=== PATIENT | female | born 1990 | race Caucasian/White ===

== ENCOUNTER 2016-08-02 13:32 | Emergency (ER) | payer MEDICAID ==
[~2016-08-02] VITALS: Ht 165.1 cm; Wt 77.1 kg
[~2016-08-02 13:32] MED LIST: PRENATAL VITAMI1 T10 PO
[2016-08-02 13:35] VITALS: BP 116/69
[2016-08-02] MEDS ORDERED: NACL 0.9% 1,000 ML IV SCH (14:52)
[2016-08-02] MEDS ORDERED: FAMOTIDINE 20 MG/2 ML VIAL IVP ONE (14:55)
[2016-08-02] MEDS ORDERED: ONDANSETRON 4 MG/2 ML VIAL IVP ONE (14:55)
--- NOTE | 2016-08-02 15:00 | NUR ---
25F BIB SELF C/O LOWER ABDOMINAL PAIN X 3 DAYS. DENIES N/V/D; SKIN IS PINK/WARM/DRY; AAOX4 WITH EVEN AND STEADY GAIT; LUNGS CLEAR BL; HR EVEN AND REGULAR; PT DENIES ANY FEVER, CP, SOB, OR COUGH AT THIS TIME; PATIENT STATES PAIN OF 7/10 AT THIS TIME; VSS; PATIENT POSITIONED FOR COMFORT; HOB ELEVATED; BEDRAILS UP X2; BED DOWN. ER MD MADE AWARE OF PT STATUS.
--- NOTE | 2016-08-02 16:10 | NUR ---
2ND N/S GIVEN 1000ML AT WIDE OPEN 999ML PER HOUR Addendum: 08/02/16 at 1621 by JENNIE ORDERED BY DR COX
[2016-08-02] MEDS ORDERED: MORPHINE SULFATE 4 MG/ML SYR IVP ONE (16:30)
[2016-08-02] MEDS ORDERED: NACL 0.9% 1,000 ML IV ONE (17:05)
[2016-08-02 17:33] VITALS: BP 104/66
--- NOTE | 2016-08-02 17:33 | NUR ---
Patient discharged with v/s stable. Written and verbal after care instructions given and explained. Patient alert, oriented and verbalized understanding of instructions. Ambulatory with steady gait. All questions addressed prior to discharge. ID band removed. Patient advised to follow up with PMD. Rx of RANITIDINE, TYLENOL given. Patient educated on indication of medication including possible reaction and side effects. Opportunity to ask questions provided and answered.
== END 2016-08-02 17:33 | disposition home or self-care (01) ==
LOC: MED 13:32
DX: K21.9 Gastro-esophageal reflux disease without esophagitis (principal)
CPT/HCPCS: 36415; 80053; 81001; 81025; 82150; 83690; 85025; 96361; 96374; 96375; 99284; J2270; J2405; J3490; J7030

== ENCOUNTER 2018-02-07 14:14 | Emergency (ER) | payer MEDICAID ==
[~2018-02-07] VITALS: Ht 165.1 cm; Wt 78.9 kg
[~2018-02-07 14:14] MED LIST changes: +PREN-385 PO; -PRENATAL VITAMI1 T10 PO
--- NOTE | 2018-02-07 14:18 | NUR ---
patient ambulated to er bed 7
[2018-02-07 14:20] VITALS: BP 109/66
--- NOTE | 2018-02-07 14:30 | NUR ---
27YO F TO ER W/C/O LT. BREAST PAIN/SWOLLEN. BREAST FEEDING X3 WKS. FED BABY TODAY. PER PATIENT, HAD FEVER LAST NIGHT AND TOOK TYLENOL 650 MG. PO. LS CLEAR THROUGHOUT. ABD SOFT. L BREAST TENDERNESS. TACHYCARDIA AT 111 NOTED. WILL CONTINUR TO MONITOR. ER MADE AWARE. HX: TUBAL LIGATION
[2018-02-07] MEDS ORDERED: ACETAMINOPHEN EXTRA STRENGTH 500 MG TAB PO ONE (14:35)
--- NOTE | 2018-02-07 14:52 | NUR ---
DR PAGAN AT BEDSIDE FOR PATIENT EVALUATION
--- NOTE | 2018-02-07 14:57 | NUR ---
Female Quoter accompanied female patient for breast Exam.
--- NOTE | 2018-02-07 15:23 | NUR ---
Patient discharged with v/s stable. Written and verbal after care instructions given and explained. Patient alert, oriented and verbalized understanding of instructions. Ambulatory with steady gait. All questions addressed prior to discharge. ID band removed. Patient advised to follow up with PMD. Rx of MOTRIN AND CLINDAMYCIN given. Patient educated on indication of medication including possible reaction and side effects. Opportunity to ask questions provided and answered.
[2018-02-07 15:25] VITALS: BP 109/66
== END 2018-02-07 15:23 | disposition home or self-care (01) ==
LOC: MED 14:14
DX: N61.0 Mastitis without abscess (principal); Z98.51 Tubal ligation status
CPT/HCPCS: 99283

== ENCOUNTER 2019-12-09 11:43 | Emergency (ER) | payer MEDICAID ==
[~2019-12-09] VITALS: Ht 167.6 cm; Wt 65.8 kg
[2019-12-09 11:56] VITALS: BP 130/78
--- NOTE | 2019-12-09 11:56 | NUR ---
29 Y/O F C/C CHEST PAIN WITH PALPITATIONS X 3 DAYS. PER PT PAIN LOCATED IN STERNUM AREA RADIATING TO RIGHT UPPER CHEST, 7/10 PAIN, PRESSURE SENSATION, LAYING DOWN EXARCERBATES THE PAIN, NOTHING ALLEVIATES. DENIES DYSURIA. PER PT NKA. HX KIDNEY STONES. NO SX. NO RX. NO NVD. SIDE RAIL X1. PT EUPNIC, VSS.
[2019-12-09] MEDS ORDERED: IBUPROFEN 600 MG TAB PO ONE (12:15)
[2019-12-09 12:40] LABS: BASOPHILS % (AUTO) 0.4 % (0.0-2.0); EOSINOPHILS # (AUTO) 0.1 K/uL (0-0.4); EOSINOPHILS % (AUTO) 1.6 % (0.0-4.0); HEMATOCRIT 39.9 % (36-48); HEMOGLOBIN 13.4 g/dL (12.0-16.0); LYMPHOCYTES # (AUTO) 1.7 K/uL (2.5-16.5); LYMPHOCYTES % (AUTO) 30.2 % (20.5-51.1); MEAN CORPUSCULAR HEMOGLOBIN 28 pg (27-31); MEAN CORPUSCULAR HGB CONC 34 g/dL (33-37); MEAN CORPUSCULAR VOLUME 84.8 fL (80-94); MONOCYTES # (AUTO) 0.5 K/uL (0.8-1.0); MONOCYTES % (AUTO) 9.1 % (1.7-9.3); NEUTROPHILS # (AUTO) 3.3 K/uL (1.8-7.7); NEUTROPHILS % (AUTO) 58.7 % (42.2-75.2); PLATELET COUNT (AUTO) 205 K/uL (140-450); RED BLOOD CELL COUNT(AUTO) 4.71 MIL/uL (4.20-5.40); WHITE BLOOD COUNT (AUTO) 5.7 K/uL (4.8-10.8)
[2019-12-09 13:11] LABS: ALBUMIN 3.8 g/dL (3.4-5.0); ANION GAP 10.9 (8-16); CREATININE 0.8 mg/dL (0.6-1.3); FREE T4 (FREE THYROXINE) 0.94 ng/dL (0.76-1.46); POTASSIUM 3.9 mmol/L (3.5-5.1); THYROID STIMULATING HORMONE 0.68 uIU/mL (0.34-3.74); TOTAL BILIRUBIN 0.3 mg/dL (0.0-1.0)
[2019-12-09 14:07] VITALS: BP 106/72
--- NOTE | 2019-12-09 14:07 | NUR ---
Patient discharged with v/s stable. Written and verbal after care instructions given and explained. Patient verbalized understanding. Ambulatory with steady gait. All questions addressed prior to discharge. Advised to follow up with PMD.
== END 2019-12-09 14:07 | disposition home or self-care (01) ==
LOC: MED 11:43
DX: R07.9 Chest pain, unspecified (principal); N20.0 Calculus of kidney; Z79.899 Other long term (current) drug therapy
CPT/HCPCS: 36415; 71045; 80053; 84439; 84443; 84484; 85025; 93005; 99285; Q0092

== ENCOUNTER 2020-04-01 03:23 | Inpatient (IN) | payer MEDICAID, SELFPAY ==
[~2020-04-01] VITALS: Ht 162.6 cm; Wt 80.3 kg
[2020-04-01 03:38] VITALS: BP 130/96
--- NOTE | 2020-04-01 03:40 | NUR ---
PT AMBUALTED TO BED 11 WITH STEADY GAIT. PT UA PROVIDED.
--- NOTE | 2020-04-01 03:40 | NUR ---
SEE COMPLETE ASSESSMENT FOR FURTHER DETAILS.
--- NOTE | 2020-04-01 04:12 | NUR ---
ERMD AT BEDSIDE.
[2020-04-01] MEDS ORDERED: MORPHINE SULFATE 2 MG/ML SYR IVP ONE ×2 (04:15→05:40)
[2020-04-01] MEDS ORDERED: NACL 0.9% 1,000 ML IV ONE ×3 (04:15→05:40)
[2020-04-01] MEDS ORDERED: ONDANSETRON 4 MG/2 ML VIAL IVP ONE (04:15)
--- NOTE | 2020-04-01 04:30 | NUR ---
IV placed in R AC 20g. Labs drawn.
--- NOTE | 2020-04-01 04:48 | NUR ---
BLOOD LABS WALKED TO LAB.
[2020-04-01 05:00] LABS: BASOPHILS % (AUTO) 0.3 % (0.0-2.0); EOSINOPHILS # (AUTO) 0.1 K/uL (0-0.4); EOSINOPHILS % (AUTO) 0.6 % (0.0-4.0); HEMATOCRIT 40.8 % (36-48); HEMOGLOBIN 13.8 g/dL (12.0-16.0); LYMPHOCYTES # (AUTO) 1.7 K/uL (2.5-16.5); LYMPHOCYTES % (AUTO) 13.3 % (20.5-51.1); MEAN CORPUSCULAR HEMOGLOBIN 28 pg (27-31); MEAN CORPUSCULAR HGB CONC 34 g/dL (33-37); MEAN CORPUSCULAR VOLUME 84.2 fL (80-94); MONOCYTES # (AUTO) 0.9 K/uL (0.8-1.0); MONOCYTES % (AUTO) 7.5 % (1.7-9.3); NEUTROPHILS # (AUTO) 9.9 K/uL (1.8-7.7); NEUTROPHILS % (AUTO) 78.3 % (42.2-75.2); PLATELET COUNT (AUTO) 203 K/uL (140-450); RED BLOOD CELL COUNT(AUTO) 4.84 MIL/uL (4.20-5.40); RED CELL DISTRIBUTION WIDTH 14.2 % (11.6-13.7); WHITE BLOOD COUNT (AUTO) 12.6 K/uL (4.8-10.8)
[2020-04-01 05:03] LABS: APPEARANCE,URINE CLEAR (CLEAR); BILIRUBIN,URINE NEGATIVE (NEGATIVE); BLOOD, URINE TRACE-I (NEGATIVE); COLOR,URINE YELLOW (YELLOW); LEUKOCYTE ESTERASE ,URINE NEGATIVE (NEGATIVE); NITRITE, URINE NEGATIVE (NEGATIVE); UGLUCOSE NEGATIVE (NEGATIVE)
[2020-04-01 05:11] LABS: ALBUMIN 3.8 g/dL (3.4-5.0); ANION GAP 12.9 (8-16); CARBON DIOXIDE 26.9 mmol/L (21-32); CREATININE 0.7 mg/dL (0.6-1.3); POTASSIUM 3.8 mmol/L (3.5-5.1); TOTAL BILIRUBIN 0.4 mg/dL (0.0-1.0)
--- NOTE | 2020-04-01 05:15 | NUR ---
PT RETURNED FRON CT VIA W/C.
[2020-04-01 05:27] LABS: WBC,URINE 0-5 /HPF (0-5)
[2020-04-01 05:29] LABS: HYALINE CASTS, URINE 0-2 /LPF (None Seen)
[2020-04-01] MEDS ORDERED: PIPERACILLIN/TAZOBACTAM 3.375 GM in DEXTROSE 5% 50 ML IV ONE (05:40)
--- NOTE | 2020-04-01 06:00 | NUR ---
ANTIGEN COVID SWAB COLLECTED AND SENT TO LAB.
[2020-04-01] MEDS ORDERED: PIPERACILLIN/TAZOBACTAM 3.375 GM VIAL IV ONE (06:19)
--- NOTE | 2020-04-01 07:14 | NUR ---
RECEIVED REPORT FROM MARIA A ALCOCER FOR TRANSFER OF CARE
--- NOTE | 2020-04-01 07:14 | NUR ---
GAVE REPORT TO JESUS ALCOCER AND RAMOS ALCOCER. TRANSFER OF CARE.
--- NOTE | 2020-04-01 08:12 | NUR ---
CALLED REPORT TO SUDHIR ALCOCER, FOR TRANSFER TO MED SURGE
--- NOTE | 2020-04-01 08:18 | NUR ---
Patient will be admitted to care of DR. THOMPSON. Admited to MED SURGE. Will go to room 106 A. Belongings list completed. Report given to SUDHIR ALCOCER.
[2020-04-01 08:20] VITALS: BP 104/58
--- NOTE | 2020-04-01 08:20 | NUR ---
RECEIVED REPORT FOR PATIENT FROM ED RN, ROSALINDA. PATIENT ARRIVED IN WHEELCHAIR, AMBULATED WITH STEADY GAIT TO BED. PATIENT AWAKE, ALERT ORIENTED X4. PATIENT SPEAKS ENOUGH TURKISH TO COMPLETE ADMISSION PROCESS WITHOUT AN HUMAN RESOURCES OFFICER. PATIENT C/O PAIN TO RIGHT UPPER QUADRANT BUT TOLERABLE AT THIS TIME. RESP EVEN AND UNLABORED ON ROOM AIR. RAC 20G INFUSING NS WELL. LUNGS CLEAR. BOWEL SOUNDS PRESENT, LBM REPORTED 11/7. SKIN IS WARM TO TOUCH AND INTACT. MRSA COLLECTED AND SENT TO LAB. PATIENT REFUSED FLU VACC AT THIS TIME. PLAN OF CARE DISCUSSED WITH PATIENT. PATIENT VERBALIZED UNDERSTANDING. CALL LIGHT WITHIN REACH. WILL CONTINUE TO MONITOR.
--- NOTE | 2020-04-01 10:35 | NUR ---
PATIENT LEFT TO OR IN STABLE CONDITION.
[2020-04-01] MEDS ORDERED: SUCCINYLCHOLINE CHLORIDE 200 MG/10 ML VIAL IVP ONE ×2 (11:05→12:00)
[2020-04-01] MEDS ORDERED: BUPIVACAINE-MPF/EPI 0.25% 10 ML VIAL INJ ONE (11:16)
[2020-04-01] MEDS ORDERED: BUPIVACAINE-MPF/EPI 0.25% 30 ML VIAL INJ ONE (11:18)
[2020-04-01] MEDS ORDERED: NACL 0.9% 1,000 ML IV SCH (11:30)
[2020-04-01] MEDS ORDERED: diphenhydrAMINE 50 MG/ML VIAL IVP PRN (11:30)
[2020-04-01] MEDS ORDERED: ONDANSETRON 4 MG/2 ML VIAL IVP PRN (11:30)
[2020-04-01] MEDS ORDERED: MEPERIDINE 25 MG/ML SYR IVP PRN (11:30)
[2020-04-01] MEDS ORDERED: PROPOFOL 200 MG/20 ML VIAL IV ONE (12:00)
[2020-04-01] MEDS ORDERED: SEVOFLURANE 250 ML BTL INH ONE (12:00)
[2020-04-01] MEDS ORDERED: METOCLOPRAMIDE 10 MG/2 ML INJ VIAL ONE (12:00)
[2020-04-01] MEDS ORDERED: ROCURONIUM 50 MG/5 ML VIAL IV ONE (12:00)
[2020-04-01] MEDS ORDERED: MIDAZOLAM 2 MG/2 ML VIAL ONE (12:00)
[2020-04-01] MEDS ORDERED: DEXAMETHASONE 4 MG/ML VIAL ONE (12:00)
[2020-04-01] MEDS ORDERED: NEOSTIGMINE 1:1000 10 MG/10 ML VIAL ONE (12:00)
[2020-04-01] MEDS ORDERED: GLYCOPYRROLATE 0.2 MG/ML VIAL ONE (12:00)
[2020-04-01] MEDS ORDERED: fentaNYL citrate 0.05 MG/ML VIAL ONE (12:00)
[2020-04-01] MEDS ORDERED: ONDANSETRON 4 MG/2 ML VIAL ONE (12:00)
[2020-04-01] MEDS ORDERED: HYDROmorphone PFS 2 MG/ML SYR ONE (12:27)
[2020-04-01] MEDS: HYDROmorphone 1 MG/ML AMP IVP PRN ×5 (12:31→15:20)
[2020-04-01] MEDS ORDERED: PIPERACILLIN/TAZOBACTAM 3.375 GM in DEXTROSE 5% 50 ML IV SCH (13:00)
--- NOTE | 2020-04-01 13:30 | NUR ---
PATIENT CAME BACK FROM OR FOR LAPAROSCOPIC APPENDECTOMY. AWAKE BUT DROWSY. ABLE TO MAKE NEEDS KNOWN. RESP EVEN AND UNLABORED ON ROOM AIR, O2SAT 93%. 3 INCISIONS NOTED TO ABD, WITH DERMABOND. VITALS WNL 97.5 66 16 107/69. SAFETY MEASURES IN PLACE. CALL LIGHT WITHIN REACH. WILL CONTINUE TO MONITOR.
[2020-04-01] MEDS: metroNIDAZOLE 500 MG/NS PREMIX 100 ML IV SCH ×2 (14:04→20:26)
--- NOTE | 2020-04-01 15:45 | NUR ---
VITALS REMAIN WNL. DILAUDID WAS GIVEN FOR PAIN TO ABD S/P LAP APPY ON SCALE 9/10. EFFECTIVE IN REDUCING PAIN . PATIENT IS IN BED RESTING, STILL UNABLE TO EAT AT THIS TIME. ENCOURAGED PATIENT TO MAKE ATTEMPT AND ALSO MAKE ATTEMPT TO MOVE IN BED, TOLERATED. I/S GIVEN. INSTRUCTIONS PROVIDED. PATIENT VERBALIZED UNDERSTANDING. SAFETY MEASURES IN PLACE. WILL CONTINUE TO MONITOR.
[2020-04-01] MEDS ORDERED: MORPHINE SULFATE 2 MG/ML SYR IVP PRN (16:50)
[2020-04-01] MEDS: DEXT 5% /NACL 0.9% 1,000 ML IV SCH (17:06)
[2020-04-01] MEDS: CYCLOBENZAPRINE 10 MG TAB PO SCH (17:06)
--- NOTE | 2020-04-01 17:42 | NUR ---
ROUTINE MEDICATION GIVEN. PATIENT GOT ON BEDSIDE COMMODE WITHOUT ANY DIFFICULTY AND ASSIST. FACIAL GRIMACE NOTED. WILL MEDICATE APPROPRIATELY. SURGICAL INCISIONS REMAIN CLOSED AND INTACT WITH DERMABOND. NO BLEEDING NOTED. CALL LIGHT WITHIN REACH. WILL CONTINUE TO MONITOR.
--- NOTE | 2020-04-01 19:00 | NUR ---
RECEIVED BEDSIDE REPORT FROM DAY SHIFT NURSE. PATIENT IS AWAKE, ALERT, AND COOPERATIVE. RESPIRATION EVEN UNLABORED ON ROOM AIR. NO DISTRESS NOTED. SKIN IS WARM AND DRY. IV PATENT AND INTACT. PLAN OF CARE WAS DISCUSSED. ALL SAFETY MEASURES IN PLACE. BED IS AT LOW POSITION. CALL LIGHT WITHIN REACH. WILL CONTINUE TO MONITOR.
--- NOTE | 2020-04-01 19:20 | NUR ---
MORPHINE GIVEN PER REQUEST FOR PAIN TO ABDOMEN RADIATING TO LEFT ABDOMEN. WILL ENDORSE TO NIGHT NURSE FOR REASSESSMENT. PATIENT IN STABLE CONDITION.
--- NOTE | 2020-04-01 23:07 | NUR ---
CHECKED PATIENT. PATIENT SLEEPING RESPIRATION EVEN UNLABORED ON ROOM AIR. NO DISTRESS NOTED. WILL CONTINUE TO MONITOR.
[2020-04-02] MEDS: HYDROcodone/APAP 5/325 MG 1 TAB TAB PO PRN ×2 (01:04→08:16)
--- NOTE | 2020-04-02 01:05 | NUR ---
WITH ABDOMINAL PAIN OF 5/10, MEDICATED WITH NORCO BY WAYNE LERMA.
--- NOTE | 2020-04-02 02:02 | NUR ---
MADE ROUNDS. PATIENT IS SLEEPING RESPIRATION EVEN UNLABORED ON ROOM AIR. NO DISTRESS NOTED.
--- NOTE | 2020-04-02 03:55 | NUR ---
CHECKED PATIENT. PATIENT SLEEPING RESPIRATION EVEN UNLABORED ON ROOM AIR. NO DISTRESS NOTED
[2020-04-02] MEDS: metroNIDAZOLE 500 MG/NS PREMIX 100 ML IV SCH ×2 (04:59→12:57)
[2020-04-02 05:30] LABS: HEMATOCRIT 35.4 % (36-48); HEMOGLOBIN 12.1 g/dL (12.0-16.0); LYMPHOCYTES # (AUTO) 1.3 K/uL (2.5-16.5); LYMPHOCYTES % (AUTO) 11.1 % (20.5-51.1); MEAN CORPUSCULAR HEMOGLOBIN 29 pg (27-31); MEAN CORPUSCULAR HGB CONC 34 g/dL (33-37); MEAN CORPUSCULAR VOLUME 84.9 fL (80-94); MONOCYTES % (AUTO) 9.2 % (1.7-9.3); NEUTROPHILS % (AUTO) 79.7 % (42.2-75.2); PLATELET COUNT (AUTO) 201 K/uL (140-450); RED BLOOD CELL COUNT(AUTO) 4.17 MIL/uL (4.20-5.40); RED CELL DISTRIBUTION WIDTH 14.2 % (11.6-13.7); WHITE BLOOD COUNT (AUTO) 11.3 K/uL (4.8-10.8)
[2020-04-02 06:07] LABS: ANION GAP 12.1 (8-16); CREATININE 0.6 mg/dL (0.6-1.3); POTASSIUM 4.1 mmol/L (3.5-5.1)
--- NOTE | 2020-04-02 07:00 | NUR ---
TOLERATING CLEAR LIQUID DIET, VOIDING WELL. ENCOURAGED TO AMBULATE MORE. CONDITION REMAIN STABLE. WILL ENDORSE TO AM SHIFT NURSE FOR CONTINUITY OF CARE.
--- NOTE | 2020-04-02 07:40 | NUR ---
REC'D REPORT FROM NIGHT NURSE, PT. RESTING, IS AT BEDSIDE, CALL LIGHT WITHIN REACH, BED LOWEST POSITION.
[2020-04-02] MEDS ORDERED: CRUSHER, PILL MC ONE (08:06)
[2020-04-02] MEDS: CYCLOBENZAPRINE 10 MG TAB PO SCH ×2 (08:16→12:57)
--- NOTE | 2020-04-02 08:20 | NUR ---
PT MEDICATIONS ADMINISTERED: FLEXERIL 5MG ,AND NORCO/APAP 5/325. PT STATES L. SIDE ABDOMEN HURTS 12/01. S1S2 NOTED, LUNGS CLEAR BUT DIMINISHED. IS EDUCATION REINFORCED. RADIAL/PEDAL PULSES +2, NO EDEMA NOTED. ABD SOFT, TENDER WITH 3 LAP INCISIONS NOTED WITH DERMABOND, NO REDNESS, ECCHYMOSIS,DRAINAGE AND WELL APPROXIMATED. IV LINE INTACT, DRY, NO SIGNS OF INFILTRATION RUNNING D5/NS.09% AT 60ML/HR. CALL LIGHT WITHIN REACH, BED LOWEST POSITION
--- NOTE | 2020-04-02 09:10 | NUR ---
PATIENT HAS BEEN SCREENED AND CATEGORIZED LOW NUTRITION RISK. PATIENT WILL BE SEEN WITHIN 7 DAYS OF ADMISSION. 04/07/[address]
[2020-04-02] MEDS: DEXT 5% /NACL 0.9% 1,000 ML IV SCH (09:40)
--- NOTE | 2020-04-02 10:20 | NUR ---
PT RESTING, STATES VERY SLEEPY D/T NORCO, DENIES PAIN AT THIS TIME. ROCEPHIN ADMINISTERED MD ORDERED, IV SITE DRY, INTACT, CLEAR DRESSING, PATENT. CALL LIGHT WITHIN REACH,
[2020-04-02] MEDS ORDERED: ACET-9525 PO (12:26)
--- NOTE | 2020-04-02 13:05 | NUR ---
ADMINISTERED MED MD ORDERS, FLEXERIL 5 MG, FLAGYL IVPB. PT INFORMED OF DISCHARGE PLANS ,ADVISED TO CONTINUE USE OF IS. PT DENIES PAIN AT THIS TIME. IV SITE DRY, CLEAN, INTACT, PATENT, NO S/S INFILTRATION/EDEMA.
[2020-04-02 13:12] VITALS: BP 100/57
--- NOTE | 2020-04-02 13:37 | NUR ---
SOCIAL WORK NOTE: Patient's Orientation Person Situation Place Time Information Provided By PATIENT Comments SW MET WITH PATIENT AT BEDSIDE TO COMPLETE ASSESSMENT AND VERIFY DEMOGRAPHICS. 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 PATIENT HAS PMHX OF KIDNEY STONES AND CHOLECYSTECTOMY. PATIENT REPORTED NO HISTORY OF SUBSTANCE ABUSE OR MENTAL HEALTH. Admitted From Home Pre-Admission Level Of Functioning Status Independent/Ambulatory Prior Resources/Services Used In Last 12 Months No Prior Resources Used Prior DME No Prior DME Used Dialysis Comments N/A Living Situation Apartment Lives With Family Patient Had Caregiver No Home Support No Caregiver Issues Financial Issues No Known Financial Issue Referral To The Financial Counselor Needed No Factors/Needs No D/C Needs Identified Pt/Rep Participated In Discharge Plan Yes Patient/Family Agress With Discharge Plan Yes Discharge Plan Comments TENTATIVE DISCHARGE PLAN IS FOR PATIENT TO RETURN HOME. DC Plan Status Initiated
--- NOTE | 2020-04-02 13:38 | NUR ---
DISCHARGE PLANNING: THIS IS A 29 Y/O MALE PATIENT FROM HOME, WHO CAME IN DUE TO RLQ AND LUQ PAIN. PAST MEDICAL HISTORY INCLUDE BILATERAL NEPHROLITHIASIS. INITIAL DIAGNOSIS OF APPENDICITIS. CURRENT LABS INCLUDE WBC 11.3, H/H 12.1/35.4, NA/K 139/4.1, BUN/CREA 3/0.6. RAPID COVID NEGATIVE. ON FLEXERIL AND ROCEPHIN. S/P LAP APPENDECTOMY BY DR. LYLE ON 04/01/2020. FOR DC TODAY.
--- NOTE | 2020-04-02 15:09 | NUR ---
REMOVED IV R. AC 20G, CANNULA INTACT, IV SITE FREE OF EDEMA/INFLAMMATION. APPLIED BAND-AID. PT TOLERATED PROCEDURE WELL
--- NOTE | 2020-04-02 15:20 | NUR ---
PT. CHANGED INTO HOME CLOTHES, MEDICALLY STABLE, WALK TO WHEELCHAIR WITHOUT ASSISTANCE, WHEELED TO FRONT OF HOSPITAL AND ENTERED INTO PRIVATE VEHICLE. DENIED PAIN AT TIME OF DISCHARGE
== END 2020-04-02 15:20 | disposition home or self-care (01) | DRG 710 ==
LOC: MED 03:23 → MTU 06:12
PROVIDERS: ADMIT Hospitalist; ATTEND Hospitalist
PROC: 0DTJ4ZZ Resection of Appendix, Percutaneous Endoscopic Approach (ICD-10-PCS; principal; 2020-04-01 10:00)
DX: A41.9 Sepsis, unspecified organism (principal); K35.30 Acute appendicitis with localized peritonitis, without perforation or gangrene; N20.0 Calculus of kidney; Z20.828 Contact with and (suspected) exposure to other viral communicable diseases; Z90.49 Acquired absence of other specified parts of digestive tract; N39.0 Urinary tract infection, site not specified; E66.9 Obesity, unspecified; R16.1 Splenomegaly, not elsewhere classified; M43.17 Spondylolisthesis, lumbosacral region; Z68.30 Body mass index [BMI] 30.0-30.9, adult; Z98.51 Tubal ligation status; Z82.49 Family history of ischemic heart disease and other diseases of the circulatory system
CPT/HCPCS: 36415; 80048; 80053; 81001; 82374; 83605; 85025; 85610; 85730; 86886; 86900; 86901; 87040; 87081; 96361; 96365; 96375; 96376; 99291; J0330; J0696; J1100; J1170; J2175; J2250; J2270; J2405; J2543; J2704; J2710; J2765; J3010; J3490; J7030; J7042; J7060

== ENCOUNTER 2022-05-22 17:27 | Emergency (ER) | payer MEDICAID ==
[~2022-05-22] VITALS: Ht 165.1 cm; Wt 104.3 kg
[~2022-05-22 17:27] MED LIST changes: +ACET-9525 PO; -PREN-385 PO
[2022-05-22 17:45] VITALS: BP 132/72
--- NOTE | 2022-05-22 17:48 | NUR ---
PT AMBULATED TO BED 2. URINE COLLECTED
--- NOTE | 2022-05-22 17:50 | NUR ---
PT AMBULATED TO BED 8
--- NOTE | 2022-05-22 18:06 | NUR ---
Patient ambulated to chair B.
[2022-05-22 20:26] LABS: BASOPHILS % (AUTO) 0.2 % (0.0-2.0); EOSINOPHILS # (AUTO) 0.1 K/uL (0-0.4); EOSINOPHILS % (AUTO) 0.4 % (0.0-4.0); HEMATOCRIT 44.9 % (36-48); HEMOGLOBIN 15.2 g/dL (12.0-16.0); LYMPHOCYTES # (AUTO) 1.4 K/uL (2.5-16.5); LYMPHOCYTES % (AUTO) 8.1 % (20.5-51.1); MEAN CORPUSCULAR HEMOGLOBIN 28 pg (27-31); MEAN CORPUSCULAR HGB CONC 34 g/dL (33-37); MEAN CORPUSCULAR VOLUME 84.1 fL (80-94); MONOCYTES # (AUTO) 0.8 K/uL (0.8-1.0); NEUTROPHILS # (AUTO) 14.5 K/uL (1.8-7.7); NEUTROPHILS % (AUTO) 86.3 % (42.2-75.2); PLATELET COUNT (AUTO) 318 K/uL (140-450); RED BLOOD CELL COUNT(AUTO) 5.34 MIL/uL (4.20-5.40); RED CELL DISTRIBUTION WIDTH 13.6 % (11.6-13.7); WHITE BLOOD COUNT (AUTO) 16.8 K/uL (4.8-10.8)
[2022-05-22 20:51] LABS: ALBUMIN 4.2 g/dL (3.4-5.0); ANION GAP 16.2 (8-16); CARBON DIOXIDE 25.5 mmol/L (21-32); CREATININE 0.6 mg/dL (0.6-1.3); POTASSIUM 3.7 mmol/L (3.5-5.1); TOTAL BILIRUBIN 0.3 mg/dL (0.0-1.0)
--- NOTE | 2022-05-22 21:34 | NUR ---
PT TO BED #3
[2022-05-22] MEDS ORDERED: KETOROLAC 30 MG/ML VIAL IM ONE (22:00)
[2022-05-22] MEDS ORDERED: DICYCLOMINE HCL LIQUID 20 MG, ALUMINUM HYD/MAG/SIMETHICONE 30 ML, LIDOCAINE VISCOUS 2% ... PO ONE ×3 (22:00)
[2022-05-22 22:02] LABS: APPEARANCE,URINE CLEAR (CLEAR); BILIRUBIN,URINE NEGATIVE (NEGATIVE); BLOOD, URINE 3+ (NEGATIVE); COLOR,URINE YELLOW (YELLOW); LEUKOCYTE ESTERASE ,URINE TRACE (NEGATIVE); NITRITE, URINE NEGATIVE (NEGATIVE); PH,URINE 5.5 (5.0-9.0); UGLUCOSE NEGATIVE (NEGATIVE)
--- NOTE | 2022-05-22 22:02 | NUR ---
Patient A/Ox4, chest rise and fall symmetrical, resting in bed, no s/s of distress.
[2022-05-22] MEDS ORDERED: ALUMINUM HYD/MAG/SIMETHICONE 30 ML UDC ONE (22:30)
[2022-05-22] MEDS ORDERED: DICYCLOMINE HCL LIQUID 10 MG/5 ML UDC ONE (22:30)
--- NOTE | 2022-05-22 23:51 | NUR ---
Patient A/Ox4, chest rise and fall symmetrical, resting in bed, no s/s of distress.
--- NOTE | 2022-05-23 00:01 | NUR ---
Patient A/Ox4, chest rise and fall symmetrical, resting in bed, no s/s of distress.
[2022-05-23] MEDS ORDERED: MAG-27 PO (02:26)
[2022-05-23] MEDS ORDERED: METR-435 PO (02:26)
[2022-05-23] MEDS ORDERED: BEN10 PO (02:26)
[2022-05-23 02:46] VITALS: BP 121/84
== END 2022-05-23 02:47 | disposition home or self-care (01) ==
LOC: MED 17:27
DX: K52.9 Noninfective gastroenteritis and colitis, unspecified (principal); R11.10 Vomiting, unspecified; R09.89 Other specified symptoms and signs involving the circulatory and respiratory systems; Z90.49 Acquired absence of other specified parts of digestive tract; Z98.890 Other specified postprocedural states; Z79.899 Other long term (current) drug therapy
CPT/HCPCS: 36415; 74176; 80053; 81001; 81025; 83690; 85025; 87086; 96372; 99284; J1885